=== PATIENT | male | born 1990 | race American Indian/Alaskan Native ===

== ENCOUNTER 2019-07-30 12:22 | Emergency (ER) | payer OTHER ==
[2019-07-30 12:31] VITALS: BP 129/64
--- NOTE | 2019-07-30 12:31 | Emergency Department Report ---
Blank Doc - Documentation Documentation: This is a 29-year-old male that presents with right knee pain and right foot p ain. This initial assessment/diagnostic orders/clinical plan/treatment(s) is/are subject to change based on patient's health status, clinical progression and re- assessment by fellow clinical providers in the ED. Further treatment and workup at subsequent clinical providers discretion. Patient/guardians urged not to elope from the ED as their condition may be serious if not clinically assessed a nd managed. Initial orders include: 1- Patient sent to [facility] for further evaluation and treatment 2- xrays
--- NOTE | 2019-07-30 13:24 | XRay Report ---
RIGHT KNEE, 3 VIEWS INDICATION: knee pain. COMPARISON: None. IMPRESSION: No acute osseous or soft tissue abnormality. No significant DJD. Signer Name: Don Wade Jr, MD Signed: 07/30/2019 1:19 PM Workstation Name: [id number]
--- NOTE | 2019-07-30 13:25 | XRay Report ---
Right foot, 3 views INDICATION: foot pain. COMPARISON: None. IMPRESSION: No acute osseous or soft tissue abnormality. No significant DJD. Signer Name: Don Wade Jr, MD Signed: 07/30/2019 1:20 PM Workstation Name: [id number]
--- NOTE | 2019-07-30 13:25 | Emergency Department Report ---
ED Extremity Problem HPI - General Chief complaint: Extremity Problem,Nontraumatic Stated complaint: RT LEG PAIN Time Seen by Provider: 07/30/19 13:15 Source: patient Mode of arrival: Ambulatory Limitations: No Limitations - History of Present Illness Initial comments: Patient is a 29-year-old male that presents emergency room with complaints of right leg pain and swelling. Patient states his pain ago on intermittent Liefer 2 weeks. Patient denies recent trauma. Patient denies falling. Patient states his entire leg swells. Patient states he had recent travel of a long flight to [place] 1 week ago and Bus travel to [place] 4 weeks ago. Patient states the pain is an 8 out of 10 patient states the pain is worse with movement and better with rest. Patient states it's nonradiating. MD Complaint: extremity pain, extremity swelling -: Sudden Location: right, lower extremity History of Same: No Radiation: none Severity scale (0 -10): 8 Quality: stabbing Consistency: constant Improves with: rest Worsens with: weight bearing, walking, exertion, palpation Associated Symptoms: denies: chest pain, shortness of breath, fever, myalgias, arthralgias, rash - Related Data Previous Rx's Medication Instructions Recorded Last Taken Type traMADol [Ultram] 50 mg PO Q4HR PRN #15 tablet 07/30/19 Unknown Rx Allergies Allergy/AdvReac Type Severity Reaction Status Date / Time No Known Allergies Allergy Unverified 07/30/19 12:24 ED Review of Systems ROS: Stated complaint: RT LEG PAIN Other details as noted in HPI Constitutional: denies: chills, fever Eyes: denies: eye pain, eye discharge, vision change ENT: denies: ear pain, throat pain Respiratory: denies: cough, shortness of breath, wheezing Cardiovascular: denies: chest pain, palpitations Endocrine: no symptoms reported Gastrointestinal: denies: abdominal pain, nausea, diarrhea Genitourinary: denies: urgency, dysuria Musculoskeletal: denies: back pain, joint swelling, arthralgia Skin: denies: rash, lesions Neurological: denies: headache, weakness, paresthesias Psychiatric: denies: anxiety, depression Hematological/Lymphatic: denies: easy bleeding, easy bruising ED Past Medical Hx - Past Medical History Previous Medical History?: No - Surgical History Past Surgical History?: No - Family History Family history: no significant - Social History Smoking Status: Never Smoker Substance Use Type: Marijuana - Medications Home Medications: Home Medications Medication Instructions Recorded Confirmed Last Taken Type traMADol [Ultram] 50 mg PO Q4HR PRN #15 tablet 07/30/19 Unknown Rx ED Physical Exam - General Limitations: No Limitations General appearance: alert, in no apparent distress - Head Head exam: Present: atraumatic, normocephalic - Eye Eye exam: Present: normal appearance - ENT ENT exam: Present: mucous membranes moist - Neck Neck exam: Present: normal inspection - Respiratory Respiratory exam: Present: normal lung sounds bilaterally. Absent: respiratory distress - Cardiovascular Cardiovascular Exam: Present: regular rate, normal rhythm. Absent: systolic murmur, diastolic murmur, rubs, gallop - GI/Abdominal GI/Abdominal exam: Present: soft, normal bowel sounds - Rectal Rectal exam: Present: deferred - Extremities Exam Extremities exam: Present: normal inspection, tenderness (right lower extremity), normal capillary refill, pedal edema (right ankle swelling), calf tenderness (right calf tenderness) - Back Exam Back exam: Present: normal inspection - Neurological Exam Neurological exam: Present: alert, oriented X3 - Psychiatric Psychiatric exam: Present: normal affect, normal mood - Skin Skin exam: Present: warm, dry, intact, normal color. Absent: rash ED Course Vital Signs 07/30/19 12:29 Temperature 98.1 F Pulse Rate 73 Respiratory 18 Rate Blood Pressure 129/64 O2 Sat by Pulse 100 Oximetry - Reevaluation(s) Reevaluation #1: I discussed all results with patient. I discussed plan of care with patient. Patient agrees with plan of care. Patient is stable for discharge. Patient will be discharged home. Patient given discharge instructions. Patient voiced understanding of discharge instructions 07/30/19 15:09 ED Medical Decision Making - Radiology Data Radiology results: report reviewed RIGHT KNEE, 3 VIEWS INDICATION: knee pain. COMPARISON: None. IMPRESSION: No acute osseous or soft tissue abnormality. No significant DJD. DUPLEX DOPPLER LOWER EXTREMITY VEINS, RIGHT INDICATION: Right leg pain and swelling. TECHNIQUE: Duplex doppler imaging was performed through the veins of the right lower extremity using venous compression and other maneuvers. COMPARISON: No relevant prior imaging study available. FINDINGS: Right Common femoral vein: Negative. Right Superficial femoral vein: Negative. Right Popliteal vein: Negative. Right Calf veins: Negative. Additional findings: None.. IMPRESSION: No sonographic evidence for DVT in the right lower extremity. - Medical Decision Making Patient is a 29-year-old male since emergency room with right leg pain 2 weeks. Patient's clinical findings consistent with a right leg sprain. Patient had a ultrasound Doppler done to rule out DVT since patient has slight pain and swelling and recent long travel. Patient's ultrasound was negative. Patient had x-rays done which were both negative. Patient is stable for discharge. Patient discharged home. Patient given discharge instructions. Patient will require a outpatient follow-up by primary care and orthopedics. - Differential Diagnosis extremity., Fracture, strain, DVT Critical care attestation.: If time is entered above; I have spent that time in minutes in the direct care of this critically ill patient, excluding procedure time. ED Disposition Clinical Impression: Leg pain, right, Leg swelling Sprain of right lower leg Qualifiers: Encounter type: initial encounter Qualified Code(s): S83.91XA - Sprain of unspecified site of right knee, initial encounter Disposition: TO HOME OR SELFCARE Is pt being admited?: No Does the pt Need Aspirin: No Condition: Stable Instructions: Knee Sprain (ED), Ankle Sprain (ED), Leg Sprain (ED) Additional Instructions: Patient to follow-up with primary care in 2-3 days. Patient to follow-up with orthopedist in 2-3 days. Patient to return to ER if condition worsens. Patient to rest. Patient to avoid strenuous exercise. Patient to increase water. Patient take Tylenol or ibuprofen when necessary for pain. Prescriptions: traMADol [Ultram] 50 mg PO Q4HR PRN #15 tablet PRN Reason: Pain Referrals: KARLEE MCMANUS MD [Staff Physician] - 2-3 Days ANETA TREJO MD [Staff Physician] - 2-3 Days Time of Disposition: 15:19
--- NOTE | 2019-07-30 14:49 | Vascular Lab Report ---
DUPLEX DOPPLER LOWER EXTREMITY VEINS, RIGHT INDICATION: Right leg pain and swelling. TECHNIQUE: Duplex doppler imaging was performed through the veins of the right lower extremity using venous compression and other maneuvers. COMPARISON: No relevant prior imaging study available. FINDINGS: Right Common femoral vein: Negative. Right Superficial femoral vein: Negative. Right Popliteal vein: Negative. Right Calf veins: Negative. Additional findings: None.. IMPRESSION: No sonographic evidence for DVT in the right lower extremity. Signer Name: Don Wade Jr, MD Signed: 07/30/2019 2:45 PM Workstation Name: [id number]
== END 2019-07-30 15:58 | disposition home or self-care (01) ==
LOC: ED 12:22
DX: S83.91XA Sprain of unspecified site of right knee, initial encounter (principal); M79.671 Pain in right foot; F12.10 Cannabis abuse, uncomplicated; Z79.899 Other long term (current) drug therapy; X58.XXXA Exposure to other specified factors, initial encounter; Y93.89 Activity, other specified; Y92.89 Other specified places as the place of occurrence of the external cause; Y99.8 Other external cause status